=== PATIENT | male | born 1970 | race Caucasian/White ===

== ENCOUNTER 2024-06-09 14:00 | Emergency (ER) | payer MEDICARE, MEDICAID ==
[2024-06-09 14:20] LABS: BASOPHILS PERCENT AUTO 0.4 % (0.0-1.0); EOSINOPHILS PERCENT AUTO 3.1 % (1.0-3.0); HEMATOCRIT 47.2 % (40.0-54.0); HEMOGLOBIN 15.6 g/dL (14.0-18.0); LYMPHOCYTES PERCENT AUTO 35.2 % (20.5-50.1); MEAN CORPUSCULAR HEMOGLOBIN 30.5 pg (27.0-34.0); MEAN CORPUSCULAR HGB CONC 33.1 g/dL (33.0-35.0); MEAN CORPUSCULAR VOLUME 92.4 fL (80-100); MONOCYTES PERCENT AUTO 10.6 % (2-8); NEUTROPHILS PERCENT AUTO 50.7 % (42.2-75.2); PLATELET COUNT,PLT 264 10^3/uL (150-450); RED BLOOD CELL COUNT 5.11 10^6/uL (4.6-6.2); WHITE BLOOD CELL COUNT,WBC 7.9 10^3/uL (5.0-10.0)
[2024-06-09] MEDS: Sodium Chloride 0.9% 10 ML Syringe FLUSH PRN (14:39)
[2024-06-09 14:40] LABS: B-TYPE NATRIURETIC PEPTIDE,BNP < 5 pg/ml (0-100)
[2024-06-09] MEDS: hydrOXYzine HCl 25 MG Tab PO ONE (14:41)
[2024-06-09] MEDS: Ondansetron 4 MG/2 ML SDV IVPUSH ONE (14:41)
[2024-06-09 14:42] LABS: A/G RATIO 1.1; ALANINE AMINOTRANSFERASE,ALT 41 U/L (16-63); ALBUMIN 3.8 g/dL (3.4-5.0); ALKALINE PHOSPHATASE 96 U/L (46-116); ASPARTATE AMNIOTRANSFERASE,AST 26 U/L (15-37); BILIRUBIN TOTAL 0.6 mg/dL (0.2-1.0); BLOOD UREA NITROGEN,BUN 12 mg/dL (7-18); CALCIUM 9.4 mg/dL (8.5-10.1); CARBON DIOXIDE,CO2 28 mmol/L (21-32); CHLORIDE,CL 104 mmol/L (98-107); CREATININE 0.86 mg/dL (0.70-1.30); ESTIMATED GFR 102 mL/min (>=60); GLUCOSE RANDOM 103 mg/dL (70-99); MAGNESIUM 1.6 mg/dL (1.8-2.4); PROTEIN TOTAL,TP 7.2 g/dL (6.4-8.2); SODIUM,NA 140 mmol/L (136-145)
[2024-06-09] MEDS: Magnesium Sulfate/Water 2 GM in Premix Bag 1 BAG IV ONE (15:05)
[2024-06-09] MEDS: Albuterol/Ipratropium 3.0-0.5 MG/3 ML Neb Soln NEB ONE (15:06)
[2024-06-09] MEDS: Take Home: hydrOXYzine HCl 25 MG Tab, 4 Tab Pack PO ONE (16:46)
== END 2024-06-09 16:42 | disposition home or self-care (01) ==
LOC: DL.ED 14:00
DX: F41.0 Panic disorder [episodic paroxysmal anxiety] (principal); E66.9 Obesity, unspecified; Z87.891 Personal history of nicotine dependence; Z68.42 Body mass index [BMI] 45.0-49.9, adult
CPT/HCPCS: 36415; 80053; 83735; 83880; 84484; 85025; 93005; 96365; 96375; 99285; A9270; J2405; J3475; J3490; J7620-GY

== ENCOUNTER 2024-08-21 01:49 | Emergency (ER) | payer MEDICAID, MEDICARE ==
[2024-08-21] MEDS ORDERED: Furosemide 20 MG Tab PO ONE (01:50)
[2024-08-21] MEDS ORDERED: Sodium Chloride 0.9% 10 ML Syringe FLUSH PRN (02:14)
[2024-08-21 02:36] LABS: APPEARANCE,URINE CLEAR (CLEAR); BILIRUBIN,URINE NEGATIVE (NEGATIVE); COLOR,URINE YELLOW (YELLOW); GLUCOSE,URINE NEGATIVE (NEGATIVE); KETONES,URINE NEGATIVE (NEGATIVE); LEUKOCYTE ESTERASE,URINE NEGATIVE (NEGATIVE); NITRITE,URINE NEGATIVE (NEGATIVE); OCCULT BLOOD,URINE NEGATIVE (NEGATIVE); PH,URINE 5.5 (5.0-9.0); PROTEIN,URINE NEGATIVE (NEGATIVE); UROBILINOGEN,URINE 0.2 mg/dL (0.2-1.0)
[2024-08-21 03:07] LABS: O2 DELIVERY DEVICE ROOM AIR
[2024-08-21 03:08] LABS: BASOPHILS PERCENT AUTO 0.4 % (0.0-1.0); EOSINOPHILS PERCENT AUTO 4.4 % (1.0-3.0); HEMATOCRIT 44.8 % (40.0-54.0); HEMOGLOBIN 14.7 g/dL (14.0-18.0); MEAN CORPUSCULAR HEMOGLOBIN 30.4 pg (27.0-34.0); MEAN CORPUSCULAR HGB CONC 32.8 g/dL (33.0-35.0); MEAN CORPUSCULAR VOLUME 92.8 fL (80-100); MONOCYTES PERCENT AUTO 11.9 % (2-8); NEUTROPHILS PERCENT AUTO 56.3 % (42.2-75.2); PLATELET COUNT,PLT 247 10^3/uL (150-450); RED BLOOD CELL COUNT 4.83 10^6/uL (4.6-6.2); WHITE BLOOD CELL COUNT,WBC 8.3 10^3/uL (5.0-10.0)
[2024-08-21] MEDS: Furosemide 100 MG/10 ML SDV IVPUSH ONE (03:28)
[2024-08-21 03:35] LABS: INR 0.9 (0.9-1.2); PROTHROMBIN TIME 9.6 SEC (9.0-12.0); PTT,PARTIAL THROMBOPLSTIN TIME 23.7 SEC (22.0-34.0)
[2024-08-21 03:45] LABS: B-TYPE NATRIURETIC PEPTIDE,BNP < 5 pg/ml (0-100)
[2024-08-21 03:52] LABS: BASE EXCESS VENOUS 1.2 mmol/l ((-2)-(+3)); BICARBONATE,VENOUS 28 mmol/l (19-25); O2 SATURATION VENOUS 99.6 % (60-80); PCO2 VENOUS 52 mmHg (41-51); PH,VENOUS 7.34 (7.31-7.41); PO2 VENOUS 184 mmHg (35-42)
[2024-08-21 04:10] LABS: A/G RATIO 1.1; ALANINE AMINOTRANSFERASE,ALT 37 U/L (16-63); ALBUMIN 3.7 g/dL (3.4-5.0); ALKALINE PHOSPHATASE 90 U/L (46-116); ANION GAP 10.6 mEq/L (7-13); ASPARTATE AMNIOTRANSFERASE,AST 20 U/L (15-37); BILIRUBIN TOTAL 0.4 mg/dL (0.2-1.0); BLOOD UREA NITROGEN,BUN 10 mg/dL (7-18); BUN/CREATININE RATIO 10.9 (No establ ref range); CALCIUM 8.9 mg/dL (8.5-10.1); CARBON DIOXIDE,CO2 28 mmol/L (21-32); CHLORIDE,CL 105 mmol/L (98-107); CREATININE 0.92 mg/dL (0.70-1.30); GLUCOSE RANDOM 129 mg/dL (70-99); LIPASE 37 U/L (16-77); MAGNESIUM 1.8 mg/dL (1.8-2.4); POTASSIUM,K 3.6 mmol/L (3.5-5.1); PROTEIN TOTAL,TP 7.2 g/dL (6.4-8.2); SODIUM,NA 140 mmol/L (136-145)
[2024-08-21 04:30] LABS: ESTIMATED GFR 98 mL/min (>=60); ETHANOL BLOOD MEDICAL < 3 mg/dL (0)
[2024-08-21] MEDS: Acetaminophen 500 MG Tab PO ONE (05:49)
[2024-08-21] MEDS: Take Home: Potassium Chloride 10 MEQ Tab, 10 Tab Pack PO ONE (05:50)
[2024-08-21] MEDS: Take Home: Tamsulosin HCl 0.4 MG, 6 Cap Pack PO ONE (05:50)
[2024-08-21] MEDS ORDERED: Furosemide 40 MG Tab ONE (05:54)
== END 2024-08-21 06:05 | disposition home or self-care (01) ==
LOC: DL.ED 01:49
DX: R06.02 Shortness of breath (principal); G47.33 Obstructive sleep apnea (adult) (pediatric)
CPT/HCPCS: 36415; 71045; 80053; 80307; 81003; 82803; 83690; 83735; 83880; 84484; 85025; 85610; 85730; 87635; 87804; 93005; 96374; 99285; A9270; J1940; U0002

== ENCOUNTER 2024-08-23 01:47 | Emergency (ER) | payer MEDICAID ==
[2024-08-23] MEDS ORDERED: Sodium Chloride 0.9% 10 ML Syringe FLUSH PRN (01:52)
[2024-08-23 02:03] LABS: BASOPHILS PERCENT AUTO 0.4 % (0.0-1.0); EOSINOPHILS PERCENT AUTO 4.1 % (1.0-3.0); HEMATOCRIT 45.1 % (40.0-54.0); HEMOGLOBIN 14.9 g/dL (14.0-18.0); LYMPHOCYTES PERCENT AUTO 28.8 % (20.5-50.1); MEAN CORPUSCULAR HEMOGLOBIN 30.8 pg (27.0-34.0); MEAN CORPUSCULAR VOLUME 93.4 fL (80-100); MONOCYTES PERCENT AUTO 11.1 % (2-8); NEUTROPHILS PERCENT AUTO 55.6 % (42.2-75.2); PLATELET COUNT,PLT 244 10^3/uL (150-450); RED BLOOD CELL COUNT 4.83 10^6/uL (4.6-6.2)
[2024-08-23] MEDS: Cyclobenzaprine 10 MG Tab PO ONE (02:15)
[2024-08-23 02:24] LABS: A/G RATIO 1.1; ALANINE AMINOTRANSFERASE,ALT 36 U/L (16-63); ALBUMIN 3.8 g/dL (3.4-5.0); ALKALINE PHOSPHATASE 92 U/L (46-116); ASPARTATE AMNIOTRANSFERASE,AST 22 U/L (15-37); BILIRUBIN TOTAL 0.6 mg/dL (0.2-1.0); BLOOD UREA NITROGEN,BUN 16 mg/dL (7-18); BUN/CREATININE RATIO 15.2 (No establ ref range); CALCIUM 9.1 mg/dL (8.5-10.1); CREATININE 1.05 mg/dL (0.70-1.30); GLUCOSE RANDOM 159 mg/dL (70-99); MAGNESIUM 1.8 mg/dL (1.8-2.4); PROTEIN TOTAL,TP 7.3 g/dL (6.4-8.2)
[2024-08-23 02:30] LABS: CHLORIDE,CL 102 mmol/L (98-107); POTASSIUM,K 3.6 mmol/L (3.5-5.1)
[2024-08-23 02:39] LABS: ANION GAP 6.6 mEq/L (7-13); CARBON DIOXIDE,CO2 31 mmol/L (21-32); ESTIMATED GFR 83 mL/min (>=60); SODIUM,NA 136 mmol/L (136-145)
[2024-08-23 02:45] LABS: APPEARANCE,URINE CLEAR (CLEAR); BILIRUBIN,URINE NEGATIVE (NEGATIVE); COLOR,URINE YELLOW (YELLOW); GLUCOSE,URINE NEGATIVE (NEGATIVE); KETONES,URINE NEGATIVE (NEGATIVE); LEUKOCYTE ESTERASE,URINE NEGATIVE (NEGATIVE); NITRITE,URINE NEGATIVE (NEGATIVE); OCCULT BLOOD,URINE NEGATIVE (NEGATIVE); PROTEIN,URINE NEGATIVE (NEGATIVE); UROBILINOGEN,URINE 0.2 mg/dL (0.2-1.0)
[2024-08-23] MEDS: Ketorolac 30 MG/ML SDV IVPUSH ONE (03:01)
[2024-08-23] MEDS: Take Home: Cyclobenzaprine 10 MG Tab, 4 Tab Pack PO ONE (03:03)
== END 2024-08-23 03:18 | disposition home or self-care (01) ==
LOC: DL.ED 01:47
DX: S76.011A Strain of muscle, fascia and tendon of right hip, initial encounter (principal); M46.1 Sacroiliitis, not elsewhere classified; I10 Essential (primary) hypertension; E66.9 Obesity, unspecified; X58.XXXA Exposure to other specified factors, initial encounter
CPT/HCPCS: 36415; 80053; 81003; 83735; 85025; 96374; 99283; A9270; J1885; 99284

== ENCOUNTER 2024-08-24 23:59 | Emergency (ER) | payer MEDICAID ==
[2024-08-25] MEDS ORDERED: Sodium Chloride 0.9% 10 ML Syringe FLUSH PRN (00:04)
[2024-08-25] MEDS: methylPREDNISolone Sodium Succinate 125 MG/2 ML SDV IVPUSH ONE (00:18)
[2024-08-25 00:28] LABS: BASOPHILS PERCENT AUTO 0.4 % (0.0-1.0); EOSINOPHILS PERCENT AUTO 3.7 % (1.0-3.0); HEMATOCRIT 43.1 % (40.0-54.0); HEMOGLOBIN 14.4 g/dL (14.0-18.0); LYMPHOCYTES PERCENT AUTO 26.1 % (20.5-50.1); MEAN CORPUSCULAR HGB CONC 33.4 g/dL (33.0-35.0); MEAN CORPUSCULAR VOLUME 92.7 fL (80-100); MONOCYTES PERCENT AUTO 9.9 % (2-8); NEUTROPHILS PERCENT AUTO 59.9 % (42.2-75.2); PLATELET COUNT,PLT 242 10^3/uL (150-450); RED BLOOD CELL COUNT 4.65 10^6/uL (4.6-6.2); WHITE BLOOD CELL COUNT,WBC 9.1 10^3/uL (5.0-10.0)
[2024-08-25] MEDS: Magnesium Sulfate/Water Premix 2 GM in Premix Bag 1 BAG IV ONE (00:35)
[2024-08-25] MEDS: Albuterol/Ipratropium 3.0-0.5 MG/3 ML Neb Soln NEB ONE (00:36)
[2024-08-25 00:38] LABS: B-TYPE NATRIURETIC PEPTIDE,BNP 12 pg/ml (0-100)
[2024-08-25 00:44] LABS: A/G RATIO 1.1; ALANINE AMINOTRANSFERASE,ALT 35 U/L (16-63); ALBUMIN 3.9 g/dL (3.4-5.0); ALKALINE PHOSPHATASE 94 U/L (46-116); ANION GAP 11.5 mEq/L (7-13); ASPARTATE AMNIOTRANSFERASE,AST 23 U/L (15-37); BILIRUBIN TOTAL 0.7 mg/dL (0.2-1.0); BLOOD UREA NITROGEN,BUN 11 mg/dL (7-18); BUN/CREATININE RATIO 9.6 (No establ ref range); C-REACTIVE PROTEIN 0.97 ng/dL (<=0.50); CALCIUM 9.1 mg/dL (8.5-10.1); CARBON DIOXIDE,CO2 29 mmol/L (21-32); CHLORIDE,CL 103 mmol/L (98-107); CREATININE 1.14 mg/dL (0.70-1.30); ESTIMATED GFR 75 mL/min (>=60); GLUCOSE RANDOM 108 mg/dL (70-99); MAGNESIUM 1.8 mg/dL (1.8-2.4); POTASSIUM,K 3.5 mmol/L (3.5-5.1); PROTEIN TOTAL,TP 7.3 g/dL (6.4-8.2); SODIUM,NA 140 mmol/L (136-145)
[2024-08-25 00:45] LABS: LACTIC ACID 1.2 mmol/L (0.4-2.0)
[2024-08-25 00:52] LABS: PROTHROMBIN TIME 10.4 SEC (9.0-12.0); PTT,PARTIAL THROMBOPLSTIN TIME 29.4 SEC (22.0-34.0)
[2024-08-25] MEDS: Benzonatate 100 MG Cap PO ONE (01:06)
[2024-08-25] MEDS: Ketorolac 30 MG/ML SDV IVPUSH ONE (01:09)
[2024-08-25] MEDS: Dexamethasone 4 MG/ML SDV IVPUSH ONE (03:48)
== END 2024-08-25 04:15 | disposition home or self-care (01) ==
LOC: DL.ED 23:59
DX: J81.0 Acute pulmonary edema (principal); I10 Essential (primary) hypertension; J45.909 Unspecified asthma, uncomplicated; K21.9 Gastro-esophageal reflux disease without esophagitis; E66.9 Obesity, unspecified; Z79.51 Long term (current) use of inhaled steroids; Z79.01 Long term (current) use of anticoagulants; Z79.899 Other long term (current) drug therapy; Z68.43 Body mass index [BMI] 50.0-59.9, adult
CPT/HCPCS: 36415; 71046; 80053; 83605; 83735; 83880; 84145; 84484; 85025; 85379; 85610; 85730; 86140; 87040; 93005; 93010; 94660; 96365; 96366; 96375; 99284; 99285-25; A9270-GY; J1100; J1885; J2919; J3475; J7620-GY

== ENCOUNTER 2024-09-11 14:37 | Observation (INO) | payer MEDICARE, MEDICAID ==
[2024-09-11] MEDS: Aspirin 81 MG Tab.Chew PO ONE (16:41)
[2024-09-11 16:50] LABS: BASOPHILS PERCENT AUTO 0.5 % (0.0-1.0); EOSINOPHILS PERCENT AUTO 3.6 % (1.0-3.0); HEMATOCRIT 46.1 % (40.0-54.0); HEMOGLOBIN 15.4 g/dL (14.0-18.0); MEAN CORPUSCULAR HEMOGLOBIN 30.8 pg (27.0-34.0); MEAN CORPUSCULAR HGB CONC 33.4 g/dL (33.0-35.0); MEAN CORPUSCULAR VOLUME 92.2 fL (80-100); MONOCYTES PERCENT AUTO 11.8 % (2-8); NEUTROPHILS PERCENT AUTO 54.1 % (42.2-75.2); PLATELET COUNT,PLT 247 10^3/uL (150-450); WHITE BLOOD CELL COUNT,WBC 6.4 10^3/uL (5.0-10.0)
[2024-09-11 16:59] LABS: APPEARANCE,URINE CLEAR (CLEAR); BILIRUBIN,URINE NEGATIVE (NEGATIVE); COLOR,URINE YELLOW (YELLOW); GLUCOSE,URINE NEGATIVE (NEGATIVE); KETONES,URINE NEGATIVE (NEGATIVE); LEUKOCYTE ESTERASE,URINE NEGATIVE (NEGATIVE); NITRITE,URINE NEGATIVE (NEGATIVE); OCCULT BLOOD,URINE NEGATIVE (NEGATIVE); PH,URINE 8.5 (5.0-9.0); PROTEIN,URINE TRACE (NEGATIVE)
[2024-09-11 17:02] LABS: AMPHETAMINES,URINE NEGATIVE (NEGATIVE); BARBITURATES,URINE NEGATIVE (NEGATIVE); BENZODIAZEPINE,URINE NEGATIVE (NEGATIVE); MDMA (ECSTASY), URINE NEGATIVE (NEGATIVE); METHADONE,URINE NEGATIVE (NEGATIVE); METHAMPHETAMINES,URINE NEGATIVE (NEGATIVE); OPIATES,URINE NEGATIVE (NEGATIVE); OXYCODONE,URINE NEGATIVE (NEGATIVE); PHENCYCLIDINE,URINE NEGATIVE (NEGATIVE); TCA,URINE NEGATIVE (NEGATIVE)
[2024-09-11 17:13] LABS: A/G RATIO 1.1; ALBUMIN 3.8 g/dL (3.4-5.0); ANION GAP 11.2 mEq/L (7-13); BILIRUBIN TOTAL 0.5 mg/dL (0.2-1.0); BUN/CREATININE RATIO 16.7 (No establ ref range); CALCIUM 9.4 mg/dL (8.5-10.1); CREATININE 0.9 mg/dL (0.70-1.30); EST CRCL DRUG DOSING (CG) 88.67 mL/min; POTASSIUM,K 4.2 mmol/L (3.5-5.1); PROTEIN TOTAL,TP 7.4 g/dL (6.4-8.2)
[2024-09-11 17:18] LABS: BACTERIA,URINE RARE /HPF (0-FEW/HPF); EPITHELIAL CELLS,URINE RARE /HPF (NOT SEEN); MUCUS,URINE RARE /LPF (NOT SEEN); RBC,URINE NOT SEEN /HPF (0-5); WBC,URINE NOT SEEN /HPF (0-5/HPF)
[2024-09-11] MEDS: Furosemide 40 MG/4 ML VIAL IVPUSH ONE (18:07)
[2024-09-11] MEDS ORDERED: Naloxone 2 MG/2 ML Syringe IVPUSH PRN (18:18)
[2024-09-11] MEDS ORDERED: Nitroglycerin 0.4 MG Tab.SL SL PRN (18:18)
[2024-09-11] MEDS ORDERED: Ondansetron 4 MG Tab.DIS PO PRN (18:18)
[2024-09-11] MEDS: Aspirin 81 MG Tab.Chew PO SCH (18:49)
[2024-09-11] MEDS: Pantoprazole 40 MG Tab.CR PO SCH (18:56)
[2024-09-11] MEDS: oxyCODONE 5 MG Tab PO PRN (18:59)
[2024-09-11] MEDS ORDERED: Melatonin 3 MG Tab PO PRN (20:17)
[2024-09-11] MEDS: LORazepam 2 MG/ML SDV IVPUSH ONE (20:59)
[2024-09-11] MEDS: Ketorolac 30 MG/ML SDV IVPUSH PRN (21:01)
[2024-09-11] MEDS: Simvastatin 10 MG Tab PO SCH (21:04)
[2024-09-11] MEDS: HYDROmorphone 0.5 MG/0.5 ML Syringe IVPUSH PRN (22:14)
[2024-09-12 06:05] LABS: BASOPHILS PERCENT AUTO 0.7 % (0.0-1.0); EOSINOPHILS PERCENT AUTO 6.5 % (1.0-3.0); HEMATOCRIT 46.5 % (40.0-54.0); HEMOGLOBIN 15.5 g/dL (14.0-18.0); LYMPHOCYTES PERCENT AUTO 37.2 % (20.5-50.1); MEAN CORPUSCULAR HEMOGLOBIN 31.1 pg (27.0-34.0); MEAN CORPUSCULAR HGB CONC 33.3 g/dL (33.0-35.0); MEAN CORPUSCULAR VOLUME 93.4 fL (80-100); MONOCYTES PERCENT AUTO 12.6 % (2-8); PLATELET COUNT,PLT 257 10^3/uL (150-450); RED BLOOD CELL COUNT 4.98 10^6/uL (4.6-6.2); WHITE BLOOD CELL COUNT,WBC 5.7 10^3/uL (5.0-10.0)
[2024-09-12 06:29] LABS: ANION GAP 7.8 mEq/L (7-13); CALCIUM 9.4 mg/dL (8.5-10.1); CREATININE 1.09 mg/dL (0.70-1.30); EST CRCL DRUG DOSING (CG) 73.21 mL/min; POTASSIUM,K 3.8 mmol/L (3.5-5.1)
[2024-09-12] MEDS: Furosemide 40 MG/4 ML VIAL IVPUSH SCH ×2 (08:37→14:06)
[2024-09-12] MEDS: LORazepam 0.5 MG Tab PO ONE (08:55)
[2024-09-12] MEDS ORDERED: Albuterol 6.7 GM Inhaler INH PRN (09:51)
[2024-09-12] MEDS: Cyanocobalamin (Vitamin B12) 1,000 MCG Tab PO SCH (10:05)
[2024-09-12] MEDS: Potassium Chloride 10 MEQ Tab.ER PO SCH (10:05)
[2024-09-12] MEDS: Rivaroxaban 10 MG Tab PO SCH (10:16)
[2024-09-12] MEDS: Non-Formulary Medication 1 Each (Omeprazole [Omeprazole] 40 MG Capsule.Dr) PO SCH (10:28)
[2024-09-12] MEDS: Tamsulosin 0.4 MG Cap.ER PO ONE (11:10)
[2024-09-12] MEDS: Diclofenac Sodium 1% Gel 100 GM Tube TOP PRN (12:37)
[2024-09-12 14:04] LABS: ANION GAP 11.4 mEq/L (7-13); CALCIUM 9.4 mg/dL (8.5-10.1); CREATININE 1.29 mg/dL (0.70-1.30); EST CRCL DRUG DOSING (CG) 61.86 mL/min; POTASSIUM,K 4.4 mmol/L (3.5-5.1)
[2024-09-12] MEDS: ALPRAZolam 0.5 MG Tab PO PRN (14:05)
[2024-09-12] MEDS: Cyclobenzaprine 10 MG Tab PO SCH (14:06)
[2024-09-12] MEDS ORDERED: Rivaroxaban 10 MG Tab PO SCH (18:00)
[2024-09-12] MEDS: Albuterol/Ipratropium 3.0-0.5 MG/3 ML Neb Soln NEB PRN (18:33)
[2024-09-13 05:39] LABS: ANION GAP 10.7 mEq/L (7-13); CALCIUM 9.1 mg/dL (8.5-10.1); CREATININE 1.08 mg/dL (0.70-1.30); EST CRCL DRUG DOSING (CG) 73.89 mL/min; POTASSIUM,K 3.7 mmol/L (3.5-5.1)
[2024-09-13] MEDS: Tamsulosin 0.4 MG Cap.ER PO SCH (09:06)
[2024-09-13] MEDS: Furosemide 40 MG/4 ML VIAL IVPUSH ONE (13:13)
== END 2024-09-13 14:45 | disposition home or self-care (01) ==
LOC: DL.ED 14:37 → DL.MS 17:55
PROVIDERS: ADMIT Internal Medicine; ATTEND Internal Medicine
DX: I11.0 Hypertensive heart disease with heart failure (principal); I50.9 Heart failure, unspecified; N40.1 Benign prostatic hyperplasia with lower urinary tract symptoms; N13.8 Other obstructive and reflux uropathy; E66.2 Morbid (severe) obesity with alveolar hypoventilation; G47.33 Obstructive sleep apnea (adult) (pediatric); E78.00 Pure hypercholesterolemia, unspecified; J45.909 Unspecified asthma, uncomplicated; K21.9 Gastro-esophageal reflux disease without esophagitis; Z79.899 Other long term (current) drug therapy
CPT/HCPCS: 36415; 71046; 80048; 80053; 80305; 81001; 83735; 83880; 84484; 85025; 85379; 93005; 93010; 94640; 96374; 96375; 96376; 99223; 99232; 99239; 99285; A9270; G0378; J1171; J1885; J1940; J2060; J7620-GY

== ENCOUNTER 2024-10-06 20:39 | Emergency (ER) | payer MEDICARE, MEDICAID ==
[2024-10-06] MEDS: Ketorolac 30 MG/ML SDV IM ONE (21:10)
[2024-10-06] MEDS: Ketorolac 30 MG/ML SDV IVPUSH ONE (21:15)
[2024-10-06 21:18] LABS: BASOPHILS PERCENT AUTO 0.6 % (0.0-1.0); EOSINOPHILS PERCENT AUTO 2.7 % (1.0-3.0); HEMATOCRIT 44.5 % (40.0-54.0); HEMOGLOBIN 14.9 g/dL (14.0-18.0); LYMPHOCYTES PERCENT AUTO 26.8 % (20.5-50.1); MEAN CORPUSCULAR HEMOGLOBIN 30.8 pg (27.0-34.0); MEAN CORPUSCULAR HGB CONC 33.5 g/dL (33.0-35.0); MEAN CORPUSCULAR VOLUME 92.1 fL (80-100); MONOCYTES PERCENT AUTO 12.5 % (2-8); NEUTROPHILS PERCENT AUTO 57.4 % (42.2-75.2); PLATELET COUNT,PLT 246 10^3/uL (150-450); RED BLOOD CELL COUNT 4.83 10^6/uL (4.6-6.2)
[2024-10-06 21:36] LABS: A/G RATIO 1.1; ALANINE AMINOTRANSFERASE,ALT 52 U/L (16-63); ALKALINE PHOSPHATASE 93 U/L (46-116); ANION GAP 11.9 mEq/L (7-13); ASPARTATE AMNIOTRANSFERASE,AST 30 U/L (15-37); BILIRUBIN TOTAL 0.8 mg/dL (0.2-1.0); BLOOD UREA NITROGEN,BUN 12 mg/dL (7-18); BUN/CREATININE RATIO 11.4 (No establ ref range); CALCIUM 9.2 mg/dL (8.5-10.1); CARBON DIOXIDE,CO2 29 mmol/L (21-32); CHLORIDE,CL 104 mmol/L (98-107); CREATININE 1.05 mg/dL (0.70-1.30); EST CRCL DRUG DOSING (CG) 73.44 mL/min; GLUCOSE RANDOM 110 mg/dL (70-99); MAGNESIUM 1.9 mg/dL (1.8-2.4); POTASSIUM,K 3.9 mmol/L (3.5-5.1); PROTEIN TOTAL,TP 7.6 g/dL (6.4-8.2); SODIUM,NA 141 mmol/L (136-145)
[2024-10-06 21:37] LABS: ESTIMATED GFR 83 mL/min (>=60)
[2024-10-06 21:38] LABS: B-TYPE NATRIURETIC PEPTIDE,BNP 10 pg/ml (0-100)
[2024-10-06] MEDS: Lidocaine 5% 700 MG Patch TOP ONE (21:45)
== END 2024-10-06 21:51 | disposition home or self-care (01) ==
LOC: DL.ED 20:39
DX: R07.2 Precordial pain (principal); I25.10 Atherosclerotic heart disease of native coronary artery without angina pectoris; I25.2 Old myocardial infarction; I11.0 Hypertensive heart disease with heart failure; I50.9 Heart failure, unspecified; J45.909 Unspecified asthma, uncomplicated; K21.9 Gastro-esophageal reflux disease without esophagitis; E66.9 Obesity, unspecified; Z90.49 Acquired absence of other specified parts of digestive tract; Z88.2 Allergy status to sulfonamides; Z88.8 Allergy status to other drugs, medicaments and biological substances; Z79.01 Long term (current) use of anticoagulants; Z79.51 Long term (current) use of inhaled steroids; Z79.82 Long term (current) use of aspirin; Z79.899 Other long term (current) drug therapy; Z68.43 Body mass index [BMI] 50.0-59.9, adult
CPT/HCPCS: 36415; 71046; 80053; 83735; 83880; 84484; 85025; 93005; 93010; 96372; 99284; 99285; A9270-GY; J1885

== ENCOUNTER 2024-11-24 11:43 | Emergency (ER) | payer MEDICARE, MEDICAID ==
[2024-11-24 12:04] LABS: HEMATOCRIT 46.6 % (40.0-54.0); HEMOGLOBIN 15.2 g/dL (14.0-18.0); MEAN CORPUSCULAR HEMOGLOBIN 30.3 pg (27.0-34.0); MEAN CORPUSCULAR HGB CONC 32.6 g/dL (33.0-35.0); PLATELET COUNT,PLT 280 10^3/uL (150-450); RED BLOOD CELL COUNT 5.01 10^6/uL (4.6-6.2); WHITE BLOOD CELL COUNT,WBC 7.6 10^3/uL (5.0-10.0)
[2024-11-24 12:07] LABS: BASOPHILS PERCENT AUTO 0.3 % (0.0-1.0); EOSINOPHILS PERCENT AUTO 5.2 % (1.0-3.0); MONOCYTES PERCENT AUTO 10.4 % (2-8); NEUTROPHILS PERCENT AUTO 48.1 % (42.2-75.2)
[2024-11-24 12:15] LABS: APPEARANCE,URINE CLEAR (CLEAR); BILIRUBIN,URINE NEGATIVE (NEGATIVE); GLUCOSE,URINE NEGATIVE (NEGATIVE); KETONES,URINE NEGATIVE (NEGATIVE); LEUKOCYTE ESTERASE,URINE NEGATIVE (NEGATIVE); NITRITE,URINE NEGATIVE (NEGATIVE); OCCULT BLOOD,URINE NEGATIVE (NEGATIVE); PH,URINE 5.5 (5.0-9.0); PROTEIN,URINE NEGATIVE (NEGATIVE); UROBILINOGEN,URINE 0.2 mg/dL (0.2-1.0)
[2024-11-24 12:17] LABS: COLOR,URINE LIGHT YELLOW (YELLOW)
[2024-11-24 12:26] LABS: B-TYPE NATRIURETIC PEPTIDE,BNP < 5 pg/ml (0-100)
[2024-11-24 12:27] LABS: EOSINOPHILS PERCENT MAN 8 % (1-3); LYMPHOCYTES % ATYPICAL MANUAL 4 %; LYMPHOCYTES PERCENT MAN 32 % (20-50); MONOCYTES PERCENT MAN 5 % (2-8); SEG NEUTROPHILS PERCENT MAN 51 % (42-75)
[2024-11-24 12:31] LABS: INR 1.1 (0.9-1.2); PROTHROMBIN TIME 11.6 SEC (9.0-12.0); PTT,PARTIAL THROMBOPLSTIN TIME 29.2 SEC (22.0-34.0)
[2024-11-24 12:37] LABS: A/G RATIO 1.1; ALANINE AMINOTRANSFERASE,ALT 68 U/L (16-63); ALBUMIN 3.9 g/dL (3.4-5.0); ALKALINE PHOSPHATASE 80 U/L (46-116); ANION GAP 14.9 mEq/L (7-13); ASPARTATE AMNIOTRANSFERASE,AST 37 U/L (15-37); BILIRUBIN TOTAL 0.5 mg/dL (0.2-1.0); BLOOD UREA NITROGEN,BUN 10 mg/dL (7-18); BUN/CREATININE RATIO 9.8 (No establ ref range); C-REACTIVE PROTEIN < 0.50 ng/dL (<=0.50); CALCIUM 8.9 mg/dL (8.5-10.1); CARBON DIOXIDE,CO2 29 mmol/L (21-32); CHLORIDE,CL 102 mmol/L (98-107); CREATININE 1.02 mg/dL (0.70-1.30); ESTIMATED GFR 86 mL/min (>=60); GLUCOSE RANDOM 123 mg/dL (70-99); POTASSIUM,K 3.9 mmol/L (3.5-5.1); PROTEIN TOTAL,TP 7.6 g/dL (6.4-8.2); SODIUM,NA 142 mmol/L (136-145)
[2024-11-24 12:42] LABS: LACTIC ACID 2.4 mmol/L (0.4-2.0)
[2024-11-24] MEDS: Iopamidol 755 Mg/ML 100 ML Bottle IVPUSH ONE (12:49)
[2024-11-24] MEDS: Sodium Chloride 0.9% 10 ML Syringe FLUSH PRN (13:59)
[2024-11-24] MEDS: Acetaminophen/HYDROcodone 325-5 MG Tab PO ONE (15:37)
[2024-11-24] MEDS: predniSONE 20 MG Tab PO ONE (15:37)
== END 2024-11-24 15:57 | disposition home or self-care (01) ==
LOC: DL.ED 11:43
DX: M51.34 Other intervertebral disc degeneration, thoracic region (principal); F41.9 Anxiety disorder, unspecified; R07.89 Other chest pain; R60.0 Localized edema; I25.2 Old myocardial infarction; J45.909 Unspecified asthma, uncomplicated; K21.9 Gastro-esophageal reflux disease without esophagitis; E66.9 Obesity, unspecified; Z90.49 Acquired absence of other specified parts of digestive tract; Z88.8 Allergy status to other drugs, medicaments and biological substances; Z79.51 Long term (current) use of inhaled steroids; Z79.01 Long term (current) use of anticoagulants; Z79.82 Long term (current) use of aspirin; Z79.899 Other long term (current) drug therapy
CPT/HCPCS: 36415; 71046; 71275; 72128; 72131; 80053; 81003; 83605; 83735; 83880; 84145; 84484; 85025; 85610; 85730; 86140; 87040; 93005; 93010; 96374; 96376; 99284; 99285-25; A9270-GY; J3360; J7512; Q9967

== ENCOUNTER 2025-05-26 17:49 | Emergency (ER) | payer MEDICAID, MEDICARE ==
[2025-05-26] MEDS: Ketorolac 30 MG/ML SDV IM ONE (18:06)
== END 2025-05-26 18:12 | disposition home or self-care (01) ==
LOC: DL.ED 17:49
DX: J18.9 Pneumonia, unspecified organism (principal); K21.9 Gastro-esophageal reflux disease without esophagitis; E66.9 Obesity, unspecified; Z88.2 Allergy status to sulfonamides; Z88.8 Allergy status to other drugs, medicaments and biological substances; Z79.82 Long term (current) use of aspirin; Z79.899 Other long term (current) drug therapy; Z90.49 Acquired absence of other specified parts of digestive tract; Z68.42 Body mass index [BMI] 45.0-49.9, adult
CPT/HCPCS: 96372; 99283; J0696; J1885

== ENCOUNTER 2025-07-16 15:43 | Emergency (ER) | payer MEDICARE, MEDICAID ==
[2025-07-16] MEDS: Magnesium Citrate Solution 296 ML Bottle PO ONE ×2 (16:11→18:54)
[2025-07-16 16:25] LABS: BASOPHILS PERCENT AUTO 0.2 % (0.0-1.0); EOSINOPHILS PERCENT AUTO 1.6 % (1.0-3.0); LYMPHOCYTES PERCENT AUTO 25.3 % (20.5-50.1); MONOCYTES PERCENT AUTO 11.1 % (2-8); NEUTROPHILS PERCENT AUTO 61.8 % (42.2-75.2); PLATELET COUNT,PLT 269 10^3/uL (150-450); RED BLOOD CELL COUNT 5.56 10^6/uL (4.6-6.2); WHITE BLOOD CELL COUNT,WBC 10.0 10^3/uL (5.0-10.0)
[2025-07-16] MEDS: Ondansetron 4 MG/2 ML SDV IVPUSH ONE (16:36)
[2025-07-16] MEDS: Iopamidol 612 MG/ML 100 ML Bottle IVPUSH ONE (16:42)
[2025-07-16] MEDS ORDERED: Ondansetron 4 MG/2 ML SDV ONE (16:45)
[2025-07-16 16:53] LABS: A/G RATIO 1.1; ALANINE AMINOTRANSFERASE,ALT 43.0 U/L (16-63); ASPARTATE AMNIOTRANSFERASE,AST 30.0 U/L (15-37); BILIRUBIN TOTAL 0.8 mg/dL (0.2-1.0); BLOOD UREA NITROGEN,BUN 11.0 mg/dL (7-18); CARBON DIOXIDE,CO2 29.0 mmol/L (21-32); CHLORIDE,CL 100.0 mmol/L (98-107); CREATININE 1.2 mg/dL (0.70-1.30); EST CRCL DRUG DOSING (CG) 63.5 mL/min; GLUCOSE RANDOM 111.0 mg/dL (70-99); POTASSIUM,K 3.6 mmol/L (3.5-5.1); PROTEIN TOTAL,TP 7.8 g/dL (6.4-8.2); SODIUM,NA 138.0 mmol/L (136-145)
[2025-07-16 16:55] LABS: ESTIMATED GFR 71.0 mL/min (>=60)
[2025-07-16] MEDS: GI Cocktail Oral Solution 30 ML PO ONE (18:01)
== END 2025-07-16 18:58 | disposition home or self-care (01) ==
LOC: DL.ED 15:43
DX: K59.01 Slow transit constipation (principal); J45.909 Unspecified asthma, uncomplicated; Z88.8 Allergy status to other drugs, medicaments and biological substances; Z90.49 Acquired absence of other specified parts of digestive tract
CPT/HCPCS: 36415; 74177; 80053; 85025; 96374; 99283; 99284; A9270; J2405; J2470; Q9967

== ENCOUNTER 2025-07-18 19:16 | Emergency (ER) | payer MEDICARE, MEDICAID ==
[2025-07-18 20:22] LABS: BASOPHILS PERCENT AUTO 0.3 % (0.0-1.0); EOSINOPHILS PERCENT AUTO 3.6 % (1.0-3.0); LYMPHOCYTES PERCENT AUTO 27.5 % (20.5-50.1); MONOCYTES PERCENT AUTO 11.8 % (2-8); NEUTROPHILS PERCENT AUTO 56.8 % (42.2-75.2); PLATELET COUNT,PLT 270 10^3/uL (150-450); RED BLOOD CELL COUNT 5.56 10^6/uL (4.6-6.2); WHITE BLOOD CELL COUNT,WBC 7.8 10^3/uL (5.0-10.0)
[2025-07-18 20:41] LABS: A/G RATIO 1.1; ALANINE AMINOTRANSFERASE,ALT 43.0 U/L (16-63); ASPARTATE AMNIOTRANSFERASE,AST 30.0 U/L (15-37); BILIRUBIN TOTAL 0.6 mg/dL (0.2-1.0); BLOOD UREA NITROGEN,BUN 9.0 mg/dL (7-18); CARBON DIOXIDE,CO2 32.0 mmol/L (21-32); CHLORIDE,CL 101.0 mmol/L (98-107); CREATININE 1.01 mg/dL (0.70-1.30); EST CRCL DRUG DOSING (CG) 75.44 mL/min; GLUCOSE RANDOM 93.0 mg/dL (70-99); POTASSIUM,K 4.0 mmol/L (3.5-5.1); PROTEIN TOTAL,TP 7.6 g/dL (6.4-8.2); SODIUM,NA 139.0 mmol/L (136-145)
[2025-07-18 20:53] LABS: ESTIMATED GFR 87.0 mL/min (>=60)
== END 2025-07-18 22:16 | disposition home or self-care (01) ==
LOC: DL.ED 19:16
DX: K59.00 Constipation, unspecified (principal); J45.909 Unspecified asthma, uncomplicated; K21.9 Gastro-esophageal reflux disease without esophagitis; Z79.899 Other long term (current) drug therapy; Z79.82 Long term (current) use of aspirin; Z88.2 Allergy status to sulfonamides
CPT/HCPCS: 36415; 80053; 85025; 99283; 99284; A9270

== ENCOUNTER 2025-08-13 13:33 | Emergency (ER) | payer MEDICARE, MEDICAID | END 2025-08-13 13:50 | disposition home or self-care (01) | LOC: DL.ED 13:33 | DX: I83.92 Asymptomatic varicose veins of left lower extremity (principal); J45.909 Unspecified asthma, uncomplicated; K21.9 Gastro-esophageal reflux disease without esophagitis; Z88.2 Allergy status to sulfonamides; Z79.899 Other long term (current) drug therapy; Z79.01 Long term (current) use of anticoagulants; Z79.82 Long term (current) use of aspirin; Z90.49 Acquired absence of other specified parts of digestive tract | CPT/HCPCS: 99283 ==

== ENCOUNTER 2025-10-14 15:30 | Emergency (ER) | payer MEDICARE, MEDICAID ==
[2025-10-14 16:15] LABS: BASOPHILS PERCENT AUTO 0.2 % (0.0-1.0); EOSINOPHILS PERCENT AUTO 2.6 % (1.0-3.0); LYMPHOCYTES PERCENT AUTO 26.0 % (20.5-50.1); MONOCYTES PERCENT AUTO 8.3 % (2-8); NEUTROPHILS PERCENT AUTO 62.9 % (42.2-75.2); PLATELET COUNT,PLT 274 10^3/uL (150-450); RED BLOOD CELL COUNT 5.47 10^6/uL (4.6-6.2); WHITE BLOOD CELL COUNT,WBC 9.7 10^3/uL (5.0-10.0)
[2025-10-14 16:37] LABS: A/G RATIO 1.0; ALANINE AMINOTRANSFERASE,ALT 25.0 U/L (16-63); ASPARTATE AMNIOTRANSFERASE,AST 15.0 U/L (15-37); BILIRUBIN TOTAL 0.5 mg/dL (0.2-1.0); BLOOD UREA NITROGEN,BUN 13.0 mg/dL (7-18); CARBON DIOXIDE,CO2 32.0 mmol/L (21-32); CHLORIDE,CL 101.0 mmol/L (98-107); CREATININE 1.14 mg/dL (0.70-1.30); EST CRCL DRUG DOSING (CG) 66.84 mL/min; ESTIMATED GFR 75.0 mL/min (>=60); GLUCOSE RANDOM 97.0 mg/dL (70-99); POTASSIUM,K 3.9 mmol/L (3.5-5.1); PROTEIN TOTAL,TP 7.7 g/dL (6.4-8.2); SODIUM,NA 141.0 mmol/L (136-145)
== END 2025-10-14 17:15 | disposition home or self-care (01) ==
LOC: DL.ED 15:30
DX: R53.1 Weakness (principal); I25.2 Old myocardial infarction; J45.909 Unspecified asthma, uncomplicated; K21.9 Gastro-esophageal reflux disease without esophagitis; Z88.2 Allergy status to sulfonamides; Z79.899 Other long term (current) drug therapy
CPT/HCPCS: 36415; 71045; 80053; 82947; 83735; 84484; 85025; 87040; 93005; 99285